=== PATIENT | female | born 2000 | race Caucasian/White ===

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

== ENCOUNTER 2023-07-12 16:47 | Emergency (ER) | payer OTHER ==
[~2023-07-12] VITALS: Ht 165.1 cm; Wt 46.2 kg
[~2023-07-12 16:47] MED LIST changes: +MECLIZINE25 MG PO
[2023-07-12 16:52] VITALS: BP 114/69
[2023-07-12 17:00] VITALS: BP 97/62
[2023-07-12] MEDS ORDERED: MOTRIN800 MG PO (17:12)
[2023-07-12] MEDS ORDERED: BACTRIM DS1 TAB PO (17:12)
[2023-07-12 17:15] VITALS: BP 104/68
[2023-07-12 17:24] VITALS: BP 97/62
== END 2023-07-12 17:30 | disposition home or self-care (01) ==
LOC: ED 16:47
DX: S61.101A Unspecified open wound of right thumb with damage to nail, initial encounter (principal); L03.011 Cellulitis of right finger; X58.XXXA Exposure to other specified factors, initial encounter